=== PATIENT | male | born 1945 | race Caucasian/White ===

== ENCOUNTER 2016-07-01 06:24 | Inpatient (IN) | payer MEDICARE, OTHER ==
[~2016-07-01] VITALS: Ht 167.6 cm; Wt 74.8 kg
[2016-07-01 06:25] VITALS: BP 133/68; PULSE 68; RESP 18; TEMP 97.6; O2SAT 97
[2016-07-01] MEDS ORDERED: CARB25TA9 PO (06:30)
[2016-07-01] MEDS ORDERED: PROP20TA3 PO (06:30)
[2016-07-01] MEDS ORDERED: SODIUM CHLOR 0.9% 1000 ML INJ 1,000 ML IV SCH (07:09)
--- NOTE | 2016-07-01 07:14 | PD ---
HPI Chief Complaint: Musculoskeletal Complaint Time Seen by Provider: 06:53 Travel History International Travel<30 days: No Contact w/Intl Traveler<30days: No Traveled to known affect area: No History of Present Illness HPI This is a 71-year-old male with a history of Parkinson's disease who presents to the emergency department with 2-3 weeks of increasing gait instability reporting that his right lower extremity intermittently feels like " wood", numb, and tight, making it difficult for him to walk around the house intermittent. He does not use a walker or a cane at this point. He is followed by Dr. Treviño for his Parkinson's disease. He lives alone and is having trouble getting around the house, cooking for himself and taking care of himself. He is a poor historian and does have some language barrier. EMS reports that a neighbor was present when they arrived at the house and the neighbor felt the patient's gait was much more unstable than normal despite the patient's baseline Parkinson's disease. PFSH Past Medical History Cardiovascular Problems: Yes Diminished Hearing: No Medical other: Yes (PARKINSON'S ) Tetanus Vaccination: > 5 Years Influenza Vaccination: No Past Surgical History Surgical History: No Previous Surgery Social History Alcohol Use: No Tobacco Use: No Substance Use: No Allergies-Medications (Allergen,Severity, Reaction): Coded Allergies: No Known Allergies (Unverified , 07/01/16) Reported Meds & Prescriptions Reported Meds & Active Scripts Active Reported Carbidopa-Levodopa 25-100 Mg Tab 1 Tab PO Q8HR Propranolol (Propranolol HCl) 20 Mg Tab 20 Mg PO Q8HR Review of Systems Except as stated in HPI: all other systems reviewed are Neg Physical Exam Narrative GENERAL:Well appearing, no acute distress SKIN: Warm and dry. HEAD: Atraumatic. Normocephalic. EYES: Pupils equal and round. No injection or drainage. ENT: Moist mucous membranes NECK: Trachea midline. CARDIOVASCULAR: Regular rate and rhythm. No murmur appreciated. 2+ bilateral DP pulses. Normal capillary refill. RESPIRATORY: Clear to auscultation. Breath sounds equal bilaterally. GASTROINTESTINAL: Abdomen soft, non-tender, nondistended. MUSCULOSKELETAL: No obvious deformities. NEUROLOGICAL: Awake and alert. Resting tremor present with rigidity of the extremities. 4+ out of 5 strength in the right lower extremity, 5 out of 5 strength in the left lower extremity, 5 out of 5 strength in the bilateral upper extremities. 3+ patellar reflex on the right, 2+ patellar reflex on the left. No clonus. PSYCHIATRIC: Appropriate mood and affect; insight and judgment normal. Data Data Last Documented VS Vital Signs Date Time Temp Pulse Resp B/P Pulse Ox O2 Delivery O2 Flow Rate FiO2 07/01/16 06:25 97.6 68 18 133/68 97 Orders Electrocardiogram (07/01/16 06:30) Complete Blood Count With Diff (07/01/16 07:09) Comprehensive Metabolic Panel (07/01/16 07:09) Creatine Kinase (Cpk) (07/01/16 07:09) Urinalysis - C+S If Indicated (07/01/16 07:09) Ct Brain W/O Iv Contrast(Rout) (07/01/16 07:09) Blood Glucose (07/01/16 07:09) Ecg Monitoring (07/01/16 07:09) Iv Access Insert/Monitor (07/01/16 07:09) Oximetry (07/01/16 07:09) Sodium Chloride 0.9% Flush (Ns Flush) (07/01/16 07:15) Sodium Chlor 0.9% 1000 Ml Inj (Ns 1000 M (07/01/16 07:09) Labs Laboratory Tests Test 07/01/16 07/01/16 07:00 07:30 White Blood Count 6.4 TH/MM3 Red Blood Count 3.88 MIL/MM3 Hemoglobin 11.5 GM/DL Hematocrit 34.1 % Mean Corpuscular Volume 88.0 FL Mean Corpuscular Hemoglobin 29.7 PG Mean Corpuscular Hemoglobin 33.8 % Concent Red Cell Distribution Width 12.5 % Platelet Count 136 TH/MM3 Mean Platelet Volume 10.7 FL Neutrophils (%) (Auto) 67.0 % Lymphocytes (%) (Auto) 21.5 % Monocytes (%) (Auto) 10.4 % Eosinophils (%) (Auto) 0.7 % Basophils (%) (Auto) 0.4 % Neutrophils # (Auto) 4.3 TH/MM3 Lymphocytes # (Auto) 1.4 TH/MM3 Monocytes # (Auto) 0.7 TH/MM3 Eosinophils # (Auto) 0.0 TH/MM3 Basophils # (Auto) 0.0 TH/MM3 CBC Comment DIFF FINAL Differential Comment Sodium Level 147 MEQ/L Potassium Level 2.9 MEQ/L Chloride Level 116 MEQ/L Carbon Dioxide Level 22.4 MEQ/L Anion Gap 9 MEQ/L Blood Urea Nitrogen 18 MG/DL Creatinine 0.66 MG/DL Estimat Glomerular Filtration 119 ML/MIN Rate Random Glucose 145 MG/DL Calcium Level 6.4 MG/DL Protein Corrected Calcium 7.8 MG/DL Total Bilirubin 0.3 MG/DL Aspartate Amino Transf 13 U/L (AST/SGOT) Alanine Aminotransferase 17 U/L (ALT/SGPT) Alkaline Phosphatase 54 U/L Total Creatine Kinase 81 U/L Total Protein 4.4 GM/DL Albumin 2.3 GM/DL Urine Color YELLOW Urine Turbidity CLEAR Urine pH 5.5 Urine Specific [place] 1.027 Urine Protein TRACE mg/dL Urine Glucose (UA) 300 mg/dL Urine Ketones NEG mg/dL Urine Occult Blood NEG Urine Nitrite NEG Urine Bilirubin NEG Urine Urobilinogen LESS THAN 2.0 MG/DL Urine Leukocyte Esterase NEG Urine RBC 1 /hpf Urine WBC 1 /hpf Urine Mucus MOD /lpf Microscopic Urinalysis Comment CATH-CULT NOT IND MDM Medical Decision Making Medical Screen Exam Complete: Yes Emergency Medical Condition: Yes Interpretation(s) Afebrile, no tachycardia, normotensive Mild anemia Mild thrombocytopenia Hypokalemia Low albumin Head CT: Atrophy Differential Diagnosis Stroke, herniated disc, demyelinating disease, Parkinson's Narrative Course This is a 71-year-old male who presents to the emergency department with increasing discomfort in his right lower extremity described as some tightness but also weakness and numbness. He does seem to have some mild objective weakness in the right lower extremity although he is able to walk slowly with assistance. He lives alone. He was placed on a monitor and an IV was established. He is hypokalemic and also has a low albumin suggesting some possible malnutrition. I think it's reasonable to place the patient in observation, have neurology see him, and have physical therapy assess him to ensure a safe discharge. His symptoms may just be related to progression of his Parkinson's disease. Diagnosis Primary Impression: Weakness Admitting Information Admitting Physician Requests: Observation Adelia Lema MD Jul 01, 2016 07:14
[2016-07-01] MEDS ORDERED: SODIUM CHLORIDE 0.9% FLUSH 5 ML FLUSH IVF PRN (07:15)
[2016-07-01 07:35] LABS: AUTOMATED NEUTROPHIL # 4.3 TH/MM3 (1.8-7.7); BASOPHIL % 0.4 % (0.0-2.0); EOSINOPHIL % 0.7 % (0.0-4.0); HEMATOCRIT 34.1 % (39.0-51.0); HEMO FLAGS DIFF FINAL; LYMPH % 21.5 % (9.0-44.0); LYMPHOCYTE # 1.4 TH/MM3 (1.0-4.8); MEAN CORPUSCULAR HEMOGLOBIN 29.7 PG (27.0-34.0); MEAN CORPUSCULAR HGB CONC 33.8 % (32.0-36.0); MONO % 10.4 % (0.0-8.0); PLATELET COUNT 136 TH/MM3 (150-450); RED BLOOD COUNT 3.88 MIL/MM3 (4.50-5.90); RED CELL DISTRIBUTION WIDTH 12.5 % (11.6-17.2); WHITE BLOOD COUNT 6.4 TH/MM3 (4.0-11.0)
--- NOTE | 2016-07-01 07:41 | RADRPT ---
EXAM DATE/TIME: 07/01/2016 07:29 [facility] COMPARISON: No previous studies available for comparison. INDICATIONS : Unsteady gait, history of Parkinson's. RADIATION DOSE: 56.35 CTDIvol (mGy) MEDICAL HISTORY : Parkinson's. SURGICAL HISTORY : None. ENCOUNTER: Initial ACUITY: 1 day PAIN SCALE: 0/10 LOCATION: cranial TECHNIQUE: Multiple contiguous axial images were obtained of the head. Using automated exposure control and adj ustment of the mA and/or kV according to patient size, radiation dose was kept as low as reasonably a chievable to obtain optimal diagnostic quality images. FINDINGS: First mild atrophy. No hemorrhage, infarct, or mass. Osseous structures are intact. CONCLUSION: No acute disease. Humberto Doan MD on July 01, 2016 at 7:39 Board Certified Radiologist. This report was verified electronically.
[2016-07-01 07:49] LABS: BICARBONATE 22.4 MEQ/L (21.0-32.0); CALCIUM-PROTEIN CORRECTED 7.8 MG/DL (8.5-10.1); TOTAL BILIRUBIN ADULT 0.3 MG/DL (0.2-1.0)
[2016-07-01 07:53] LABS: POTASSIUM 2.9 MEQ/L (3.5-5.1)
[2016-07-01 07:57] LABS: BLOOD, URINE NEG (NEG); COMMENT (UR) CATH-CULT NOT IND; CULTURE IF INDICATED CATH CULTURE NOT IND; GLUCOSE,URINE 300 mg/dL (NEG); KETONE, URINE NEG (NEG); MUCUS URINE MOD /lpf (OCC); NITRITE,URINE NEG (NEG); PH, URINE 5.5 (5.0-8.5); URINE COLOR YELLOW (YELLW/STRAW)
[2016-07-01] MEDS ORDERED: POTASSIUM CL 40 MEQ/30 ML LIQ UDC PO ONE (08:15)
[2016-07-01 08:31] VITALS: O2SAT 96
--- NOTE | 2016-07-01 09:21 | HHI.HP ---
HPI Service Family Medicine Primary Care Physician No Primary Care Physician Admission Diagnosis weakness Diagnoses: International Travel<30 Days: No Contact w/Intl Traveler<30days: No Known Affected Area: No History of Present Illness 4 years PD. 2-3 weeks right leg both legs feel like piece of wood instead of legs right leg shaking. before, i sleep everything ok. h/o sacral infection alwyas low power in arms choke on his own tongue. face looks the same if i get up from the bed, then arms shake No LOC, sz, falls. can walk with little steps. no walker, no cane. Last visit with Neuro Dr. Treviño, 1 month ago. better at that time. neighbor called 911. Live alone. Review of Systems ROS Limitations: Language Barrier (pt speaks Japanese, [place] Citizen with accent and limited vocabulary) Constitutional: DENIES: Fever, Chills Endocrine: DENIES: Polyuria Eyes: COMPLAINS OF: Blurred vision Ears, nose, mouth, throat: DENIES: Hearing loss, Throat pain Respiratory: DENIES: Cough, Shortness of breath Cardiovascular: DENIES: Chest pain Gastrointestinal: COMPLAINS OF: Constipation (no BM qd), DENIES: Abdominal pain Genitourinary: DENIES: Dysuria Musculoskeletal: COMPLAINS OF: Back pain Integumentary: COMPLAINS OF: Nail changes (toes rubbing, causing infection) Neurologic: COMPLAINS OF: Abnormal gait, Paresthesias, DENIES: Headache, Seizures Psychiatric: DENIES: Anxiety, Depression Past Family Social History Past Medical History PD Past Surgical History No surg Reported Medications something to calm nerves Reported Meds & Active Scripts Active Reported Carbidopa-Levodopa 25-100 Mg Tab 1 Tab PO Q8HR Propranolol (Propranolol HCl) 20 Mg Tab 20 Mg PO Q8HR Allergies: Coded Allergies: No Known Allergies (Unverified , 07/01/16) Family History no PD in [facility] Social History moved here 40 years for an [place] girl 2 years ago. Son . used to walk and bicycle. No HECTOR. Physical Exam Vital Signs Vital Signs Date Time Temp Pulse Resp B/P Pulse Ox O2 Delivery O2 Flow Rate FiO2 07/01/16 08:31 96 Room Air 07/01/16 06:25 97.6 68 18 133/68 97 Physical Exam GENERAL: This is a well-nourished, well-developed patient, in no apparent distress. SKIN: No rashes, ecchymoses or lesions. Cool and dry. HEAD: Atraumatic. Normocephalic. No temporal or scalp tenderness. EYES: Pupils equal round and reactive. Extraocular motions intact. No scleral icterus. No injection or drainage. ENT: Nose without bleeding, purulent drainage or septal hematoma. Throat without erythema, tonsillar hypertrophy or exudate. Uvula midline. Airway patent. NECK: Trachea midline. No JVD or lymphadenopathy. Supple, nontender, no meningeal signs. CARDIOVASCULAR: Regular rate and rhythm without murmurs, gallops, or rubs. RESPIRATORY: Clear to auscultation. Breath sounds equal bilaterally. No wheezes , rales, or rhonchi. GASTROINTESTINAL: Abdomen soft, non-tender, nondistended. No hepato-splenomegaly , or palpable masses. No guarding. MUSCULOSKELETAL: Extremities without clubbing, cyanosis, or edema. No joint tenderness, effusion, or edema noted. No calf tenderness. Negative Homans sign bilaterally. NEUROLOGICAL: Awake and alert. Cranial nerves II through XII intact. Motor and sensory grossly within normal limits. Five out of 5 muscle strength in all muscle groups. Normal speech. Laboratory Laboratory Tests Test 07/01/16 07/01/16 07:00 07:30 White Blood Count 6.4 Red Blood Count 3.88 Hemoglobin 11.5 Hematocrit 34.1 Mean Corpuscular Volume 88.0 Mean Corpuscular Hemoglobin 29.7 Mean Corpuscular Hemoglobin 33.8 Concent Red Cell Distribution Width 12.5 Platelet Count 136 Mean Platelet Volume 10.7 Neutrophils (%) (Auto) 67.0 Lymphocytes (%) (Auto) 21.5 Monocytes (%) (Auto) 10.4 Eosinophils (%) (Auto) 0.7 Basophils (%) (Auto) 0.4 Neutrophils # (Auto) 4.3 Lymphocytes # (Auto) 1.4 Monocytes # (Auto) 0.7 Eosinophils # (Auto) 0.0 Basophils # (Auto) 0.0 CBC Comment DIFF FINAL Differential Comment Sodium Level 147 Potassium Level 2.9 Chloride Level 116 Carbon Dioxide Level 22.4 Anion Gap 9 Blood Urea Nitrogen 18 Creatinine 0.66 Estimat Glomerular Filtration 119 Rate Random Glucose 145 Calcium Level 6.4 Protein Corrected Calcium 7.8 Total Bilirubin 0.3 Aspartate Amino Transf 13 (AST/SGOT) Alanine Aminotransferase 17 (ALT/SGPT) Alkaline Phosphatase 54 Total Creatine Kinase 81 Total Protein 4.4 Albumin 2.3 Urine Color YELLOW Urine Turbidity CLEAR Urine pH 5.5 Urine Specific [place] 1.027 Urine Protein TRACE Urine Glucose (UA) 300 Urine Ketones NEG Urine Occult Blood NEG Urine Nitrite NEG Urine Bilirubin NEG Urine Urobilinogen LESS THAN 2.0 Urine Leukocyte Esterase NEG Urine RBC 1 Urine WBC 1 Urine Mucus MOD Microscopic Urinalysis Comment CATH-CULT NOT IND Result Diagram: 07/01/16 0700 07/01/16 0700 Physician Certification Order for Inpatient Services The services are ordered in accordance with Medicare regulations or non- Medicare payer requirements, as applicable. In the case of services not specified as inpatient-only, they are appropriately provided as inpatient services in accordance with the 2-midnight benchmark. days is the estimated time the patient will need to remain in the hospital, assuming treatment plan goals are met and no additional complications. Joby Brantley MD R1 Jul 01, 2016 09:21
[2016-07-01] MEDS ORDERED: hydrALAZINE HCL 10 MG TAB PO PRN (09:45)
[2016-07-01] MEDS ORDERED: ONDANSETRON HCL 4 MG/2 ML VIAL IV PRN (09:45)
[2016-07-01] MEDS ORDERED: ACETAMINOPHEN 325 MG TAB PO PRN (09:45)
[2016-07-01] MEDS ORDERED: POTASSIUM CHLORIDE 25 MEQ EFFERVESCENT TAB PO ONE (10:00)
[2016-07-01] MEDS ORDERED: CALCIUM GLUCONATE INJ 1 GM in SODIUM CHLORIDE 0.9% INJ 100 ML IV ONE (11:00)
[2016-07-01] MEDS: ENOXAPARIN SODIUM 40 MG/0.4 ML SYRINGE SQ SCH (11:03)
[2016-07-01 14:02] VITALS: BP 145/79
--- NOTE | 2016-07-01 15:36 | HHI.HP ---
History of Present Illness Primary Care Physician Sierra Helm DO Admission Diagnosis weakness and insomnis progressing over the past week now with ambulatory difficulties and hypocalcemia Diagnoses: (1) Weakness (2) parkinsons Review of Systems Constitutional: COMPLAINS OF: Fever Musculoskeletal: COMPLAINS OF: Stiffness Neurologic: COMPLAINS OF: Abnormal gait, Tremor, Poor Balance Psychiatric: COMPLAINS OF: Agitation Past Family Social History Allergies: Coded Allergies: No Known Allergies (Unverified , 07/01/16) Past Medical History parkinsons Past Surgical History appendectomy Reported Medications Current Medications Medications (Trade) Dose Ordered Sig/Chago Route PRN Reason Start Time Stop Time Status Last Admin Dose Admin IV Flush (NS Flush) 2 ml UNSCH PRN IVF FLUSH AFTER USING IV ACCESS 07/01/16 07:15 Enoxaparin Sodium (Lovenox Inj) 40 mg Q24H SQ 07/01/16 10:00 07/01/16 11:03 Hydralazine HCl (Apresoline) 10 mg Q6H PRN PO SBP>160, DBP>90 07/01/16 09:45 Senna/Docusate Sodium (Erendira-Colace) 2 tab HS PO 07/01/16 21:00 Ondansetron HCl (Zofran Inj) 4 mg Q6H PRN IV NAUSEA OR VOMITING 07/01/16 09:45 Acetaminophen (Tylenol) 650 mg Q4H PRN PO SEE LABEL COMMENTS 07/01/16 09:45 Active Ordered Medications Current Medications Medications (Trade) Dose Ordered Sig/Chago Route PRN Reason Start Time Stop Time Status Last Admin Dose Admin IV Flush (NS Flush) 2 ml UNSCH PRN IVF FLUSH AFTER USING IV ACCESS 07/01/16 07:15 Enoxaparin Sodium (Lovenox Inj) 40 mg Q24H SQ 07/01/16 10:00 07/01/16 11:03 Hydralazine HCl (Apresoline) 10 mg Q6H PRN PO SBP>160, DBP>90 07/01/16 09:45 Senna/Docusate Sodium (Erendira-Colace) 2 tab HS PO 07/01/16 21:00 Ondansetron HCl (Zofran Inj) 4 mg Q6H PRN IV NAUSEA OR VOMITING 07/01/16 09:45 Acetaminophen (Tylenol) 650 mg Q4H PRN PO SEE LABEL COMMENTS 07/01/16 09:45 Family History both parents are in old age Social History non smoker nondrinker non drugger Physical Exam Vital Signs Vital Signs Date Time Temp Pulse Resp B/P Pulse Ox O2 Delivery O2 Flow Rate FiO2 07/01/16 14:02 89 18 145/79 98 07/01/16 08:31 96 Room Air 07/01/16 06:25 97.6 68 18 133/68 97 Physical Exam GENERAL: This is a well-nourished, well-developed patient, in no apparent distress walks with walker with typical parkinsons gait an resting tremor. SKIN: No rashes, ecchymoses or lesions. Cool and dry. HEAD: Atraumatic. Normocephalic. No temporal or scalp tenderness. EYES: Pupils equal round and reactive. Extraocular motions intact. No scleral icterus. No injection or drainage. ENT: Nose without bleeding, purulent drainage or septal hematoma. Throat without erythema, tonsillar hypertrophy or exudate. Uvula midline. Airway patent. NECK: Trachea midline. No JVD or lymphadenopathy. Supple, nontender, no meningeal signs. CARDIOVASCULAR: Regular rate and rhythm without murmurs, gallops, or rubs. RESPIRATORY: Clear to auscultation. Breath sounds equal bilaterally. No wheezes , rales, or rhonchi. GASTROINTESTINAL: Abdomen soft, non-tender, nondistended. No hepato-splenomegaly , or palpable masses. No guarding. MUSCULOSKELETAL: Extremities without clubbing, cyanosis, or edema. No joint tenderness, effusion, or edema noted. No calf tenderness. Negative Homans sign bilaterally. NEUROLOGICAL: Awake and alert. Cranial nerves II through XII intact. Motor and sensory grossly within normal limits. Five out of 5 muscle strength in all muscle groups. Normal speech. resting tremor present as is cogwheeling Laboratory Laboratory Tests Test 07/01/16 07/01/16 07:00 07:30 White Blood Count 6.4 Red Blood Count 3.88 Hemoglobin 11.5 Hematocrit 34.1 Mean Corpuscular Volume 88.0 Mean Corpuscular Hemoglobin 29.7 Mean Corpuscular Hemoglobin 33.8 Concent Red Cell Distribution Width 12.5 Platelet Count 136 Mean Platelet Volume 10.7 Neutrophils (%) (Auto) 67.0 Lymphocytes (%) (Auto) 21.5 Monocytes (%) (Auto) 10.4 Eosinophils (%) (Auto) 0.7 Basophils (%) (Auto) 0.4 Neutrophils # (Auto) 4.3 Lymphocytes # (Auto) 1.4 Monocytes # (Auto) 0.7 Eosinophils # (Auto) 0.0 Basophils # (Auto) 0.0 CBC Comment DIFF FINAL Differential Comment Sodium Level 147 Potassium Level 2.9 Chloride Level 116 Carbon Dioxide Level 22.4 Anion Gap 9 Blood Urea Nitrogen 18 Creatinine 0.66 Estimat Glomerular Filtration 119 Rate Random Glucose 145 Calcium Level 6.4 Protein Corrected Calcium 7.8 Total Bilirubin 0.3 Aspartate Amino Transf 13 (AST/SGOT) Alanine Aminotransferase 17 (ALT/SGPT) Alkaline Phosphatase 54 Total Creatine Kinase 81 Total Protein 4.4 Albumin 2.3 Urine Color YELLOW Urine Turbidity CLEAR Urine pH 5.5 Urine Specific [place] 1.027 Urine Protein TRACE Urine Glucose (UA) 300 Urine Ketones NEG Urine Occult Blood NEG Urine Nitrite NEG Urine Bilirubin NEG Urine Urobilinogen LESS THAN 2.0 Urine Leukocyte Esterase NEG Urine RBC 1 Urine WBC 1 Urine Mucus MOD Microscopic Urinalysis Comment CATH-CULT NOT IND Result Diagram: 07/01/16 0700 07/01/16 0700 Assessment and Plan Assessment and Plan acute exacerbation parkinsons , insomnia , anxiety unsteady gait Discharge Planning would benefit from rehab while his parkinsons meds are adjusted Fantasma Helm DO Jul 01, 2016 15:36
[2016-07-01 15:57] VITALS: BP 169/76; PULSE 77; RESP 18; TEMP 97; O2SAT 97
[2016-07-01 16:14] LABS: BICARBONATE 27.8 MEQ/L (21.0-32.0); POTASSIUM 4.3 MEQ/L (3.5-5.1)
[2016-07-01 16:55] LABS: AUTOMATED NEUTROPHIL # 5.6 TH/MM3 (1.8-7.7); BASOPHIL % 0.4 % (0.0-2.0); EOSINOPHIL % 0.4 % (0.0-4.0); HEMATOCRIT 42.3 % (39.0-51.0); HEMO FLAGS DIFF FINAL; LYMPH % 17.9 % (9.0-44.0); LYMPHOCYTE # 1.4 TH/MM3 (1.0-4.8); MEAN CELL VOLUME 87.3 FL (80.0-100.0); MEAN CORPUSCULAR HEMOGLOBIN 30.2 PG (27.0-34.0); MEAN CORPUSCULAR HGB CONC 34.6 % (32.0-36.0); MONO % 8.8 % (0.0-8.0); NEUT % 72.5 % (16.0-70.0); PLATELET COUNT 211 TH/MM3 (150-450); RED BLOOD COUNT 4.85 MIL/MM3 (4.50-5.90); RED CELL DISTRIBUTION WIDTH 12.9 % (11.6-17.2); WHITE BLOOD COUNT 7.7 TH/MM3 (4.0-11.0)
[2016-07-01 17:25] LABS: WESTERGREN SEDIMENTATION RATE 5 mm/hr (0-20)
--- NOTE | 2016-07-01 17:44 | EKG ---
Date Performed: 07/01/2016 Time Performed: 06:30:02 PTAGE: 71 years EKG: Sinus rhythm WITH OCCASIONAL SUPRAVENTRICULAR PREMATURE COMPLEXES BORDERLINE ECG NO PREVIOUS TRACING DOCTOR: Selena Acosta Interpretating Date/Time 07/01/2016 17:43:37
[2016-07-01] MEDS ORDERED: CARBIDOPA/LEVODOPA 25 MG/100 MG TAB PO ONE (19:15)
[2016-07-01 20:00] VITALS: BP 148/67; PULSE 72; RESP 22; TEMP 96.9; O2SAT 98
--- NOTE | 2016-07-01 20:00 | MB ---
cc: KILEY COX DATE OF CONSULTATION: 07/01/2016 REASON FOR CONSULTATION: HISTORY OF PRESENT ILLNESS: The patient is a 71-year-old right-handed man with a history of Parkinson's disease, followed by Dr. Treviño, who came to the emergency department. It feels like his right leg is wood. On talking him to him further it appears to be more like cramps in his legs. He lives alone. He has had trouble getting around, cannot sleep well. He is originally from [place]. ALLERGIES: None known. MEDICATIONS: He is on Sinemet, one pill every 8 hours, 25/100. Inderal 20 milligrams q8 hours. REVIEW OF SYSTEMS: He denied any hypertension, diabetes, hypercholesterolemia, IN CABG, cardiac arrhythmia, renal, hepatic, pulmonary disease, thyroid disease, lupus, ulcer, cancer, seizure, stroke. SOCIAL HISTORY He is not a smoker or drinker. He lives alone. FAMILY HISTORY: Negative for cancer, seizure or stroke. PHYSICAL EXAMINATION: Afebrile, 77, 18, 169/76. There were no carotid bruits. Heart: Heart was regular rhythm. I did not detect a murmur. HEENT: Pupils were equal. Visual [place] full. Extraocular movements intact without nystagmus. Fact symmetrical with normal sensation. Tongue was midline. There is no drift. He had normal strength in upper and lower extremities bilaterally. Tone is increased with mild cogwheel rigidity, more on the right side than the left, although his tone was near normal, bilateral lower extremities. Toes was downgoing bilaterally. DTRs are 2+ symmetric throughout. Pinprick and vibratory sense are intact including the right and left foot. He has absent pulses in both of his feet. He has a little bit of swelling on the distal right lower extremity around the ankle compared to the left. He is not ataxic on [id number] or [id number]. Gait is actually steady. He takes some smaller steps. No major shuffling right now. LABORATORY DATA: Sedimentation rate is normal. UA is negative. PSA is elevated 5.7. Basic metabolic profile was normal. Initially his potassium was 2.9 but it has come up. Calcium was low at 6.4, now 8.6. LFTs are normal. Abdominal 2.3. LDL cholesterol has been high in the past in 2011. He had a CT scan of his brain which showed some mild atrophy. Review of the films. IMPRESSION: Parkinson's disease, do not see much going on here. Will just get a venous ultrasound done of the right lower extremity. He has poor pulses in both of his feet. He could have some peripheral vascular disease, that could be worked up outpatient. I will increase his Sinemet to two pills one at 4, and one at bed time. However, what could be done in the office, could consider starting him on Azilect or dopamine agonist instead of doubling on his Sinemet long-term but just short-term to see if that will help will do it here, then he might be able to back off on the Sinemet back to one pill again. MD MARIO De Leon/MACKENZIE /5:54 PM /7:44 PM
[2016-07-01 21:00] VITALS: PULSE 91
[2016-07-01] MEDS: DOCUSATE SODIUM 50 MG/SENNA 8.6 MG TAB PO SCH (21:52)
[2016-07-01] MEDS: CARBIDOPA/LEVODOPA 25 MG/100 MG TAB PO SCH (21:57)
[2016-07-02] VITALS (10 sets, daily range): BP systolic 78–135; BP diastolic 50–74; PULSE 65–118; RESP 16–18; TEMP 95.6–98.5; O2SAT 96–99
[2016-07-02] MEDS: CARBIDOPA/LEVODOPA 25 MG/100 MG TAB PO SCH ×3 (05:56→21:58)
[2016-07-02 07:31] LABS: AUTOMATED NEUTROPHIL # 3.8 TH/MM3 (1.8-7.7); BASOPHIL % 0.3 % (0.0-2.0); EOSINOPHIL % 0.6 % (0.0-4.0); HEMATOCRIT 40.9 % (39.0-51.0); HEMO FLAGS DIFF FINAL; LYMPH % 25.1 % (9.0-44.0); LYMPHOCYTE # 1.5 TH/MM3 (1.0-4.8); MEAN CELL VOLUME 87.5 FL (80.0-100.0); MEAN CORPUSCULAR HEMOGLOBIN 29.6 PG (27.0-34.0); MEAN CORPUSCULAR HGB CONC 33.8 % (32.0-36.0); MONO % 11.9 % (0.0-8.0); NEUT % 62.1 % (16.0-70.0); PLATELET COUNT 169 TH/MM3 (150-450); RED BLOOD COUNT 4.67 MIL/MM3 (4.50-5.90); RED CELL DISTRIBUTION WIDTH 12.8 % (11.6-17.2); WHITE BLOOD COUNT 6.1 TH/MM3 (4.0-11.0)
[2016-07-02 07:50] LABS: ALT (GPT) 11 U/L (12-78); ANION GAP 6 MEQ/L (5-15); AST (GOT) 14 U/L (15-37); BICARBONATE 30.6 MEQ/L (21.0-32.0); BLOOD UREA NITROGEN 14 MG/DL (7-18); CHLORIDE 104 MEQ/L (98-107); GLOMERULAR FILTRATION RATE 86 ML/MIN (>89); POTASSIUM 4.2 MEQ/L (3.5-5.1); SODIUM (NA) 141 MEQ/L (136-145)
[2016-07-02 07:52] LABS: ALKALINE PHOSPHATASE 63 U/L (45-117); TOTAL BILIRUBIN ADULT 0.8 MG/DL (0.2-1.0)
--- NOTE | 2016-07-02 08:05 | HHI.PR ---
Objective Vital Signs Date Time Temp Pulse Resp B/P Pulse Ox O2 Delivery O2 Flow Rate FiO2 07/02/16 04:00 95.6 75 18 126/60 99 07/02/16 00:00 96.8 65 16 101/59 98 07/01/16 21:00 91 07/01/16 20:00 96.9 72 22 148/67 98 07/01/16 15:57 97.0 77 18 169/76 97 07/01/16 14:02 89 18 145/79 98 07/01/16 08:31 96 Room Air I/O 07/01/16 07/01/16 07/01/16 07/02/16 07/02/16 07/02/16 07:00 15:00 23:00 07:00 15:00 23:00 Intake Total 120 ml 120 ml Balance 120 ml 120 ml Intake Oral 120 ml 120 ml # Voids 2 1 # Bowel Movements 0 0 Result Diagram: 07/02/16 0631 07/02/16 0631 Objective Remarks awake alert stride a little better on two pills tid still co did not sleep well tone a bit better and gait steady Assessment and Plan Assessment and Plan imp he can dc and fu dr fatima outpt this week if venous us neg dvt Galen Tompkins MD Jul 02, 2016 08:05
[2016-07-02] MEDS: ENOXAPARIN SODIUM 40 MG/0.4 ML SYRINGE SQ SCH (09:42)
--- NOTE | 2016-07-02 12:11 | RADRPT ---
EXAM DATE/TIME: 07/02/2016 11:00 [facility] COMPARISON: No previous studies available for comparison. INDICATIONS : Bilateral leg pain. MEDICAL HISTORY : Parkinson's disease. unable to obtain full medical history. SURGICAL HISTORY : None. ENCOUNTER: Initial ACUITY: 1 day PAIN SCORE: 1/10 LOCATION: Bilateral legs. TECHNIQUE: Venous ultrasound of the left and right leg was performed from the inguinal ligament to the proximal calf. Real-time, color Doppler and spectral tracing, compression and augmentation techniques were us ed. FINDINGS: RIGHT LEG: There is normal compressibility of the deep venous system from the inguinal region to the proximal ca lf. No echogenic clot is seen in the lumen of the common femoral, femoral, popliteal, and posterior tibial veins. There is a normal response of the venous system to proximal and distal augmentation an d respiration. LEFT LEG: There is normal compressibility of the deep venous system from the inguinal region to the proximal ca lf. No echogenic clot is seen in the lumen of the common femoral, femoral, popliteal, and posterior tibial veins. There is a normal response of the venous system to proximal and distal augmentation an d respiration. CONCLUSION: No evidence of DVT. Abdirahman Lopez MD on July 02, 2016 at 12:10 Board Certified Radiologist. This report was verified electronically.
--- NOTE | 2016-07-02 12:54 | HHI.PR ---
Subjective Remarks Patient seen at bedside. OOB in chair reports that he has not slept very well and needs to go home soon. Objective Vital Signs Date Time Temp Pulse Resp B/P Pulse Ox O2 Delivery O2 Flow Rate FiO2 07/02/16 12:44 97.0 91 17 135/60 97 07/02/16 08:00 97.5 69 18 110/55 99 07/02/16 04:00 95.6 75 18 126/60 99 07/02/16 00:00 96.8 65 16 101/59 98 07/01/16 21:00 91 07/01/16 20:00 96.9 72 22 148/67 98 07/01/16 15:57 97.0 77 18 169/76 97 07/01/16 14:02 89 18 145/79 98 I/O 07/01/16 07/01/16 07/01/16 07/02/16 07/02/16 07/02/16 07:00 15:00 23:00 07:00 15:00 23:00 Intake Total 120 ml 120 ml Balance 120 ml 120 ml Intake Oral 120 ml 120 ml # Voids 2 1 # Bowel Movements 0 0 Result Diagram: 07/02/16 0631 07/02/16 0631 Imaging Last [address] 07/01/16 0709 Signed Impressions: Service Date/Time: Friday, July 01, 2016 07:29 - CONCLUSION: No acute disease. Humberto Doan MD Objective Remarks GENERAL: This is a well-nourished, well-developed patient, in no apparent distress walks with walker with typical parkinsons gait an resting tremor. SKIN: No rashes, ecchymoses or lesions. Cool and dry. HEAD: Atraumatic. Normocephalic. EYES: Pupils equal round and reactive. CARDIOVASCULAR: Regular rate and rhythm without murmurs, gallops, or rubs. RESPIRATORY: Clear to auscultation. Breath sounds equal bilaterally. No wheezes , rales, or rhonchi. GASTROINTESTINAL: Abdomen soft, non-tender, nondistended. MUSCULOSKELETAL: Weakness noted. No calf tenderness. Negative Homans sign bilaterally. NEUROLOGICAL: Awake and alert. . Normal speech. Resting tremor present. Medications and IVs Current Medications Medications (Trade) Dose Ordered Sig/Chago Route Start Time Stop Time Status Last Admin (NS Flush) 2 ml UNSCH PRN IVF 07/01/16 07:15 (Lovenox Inj) 40 mg Q24H SQ 07/01/16 10:00 07/02/16 09:42 (Apresoline) 10 mg Q6H PRN PO 07/01/16 09:45 (Erendira-Colace) 2 tab HS PO 07/01/16 21:00 07/01/16 21:52 (Zofran Inj) 4 mg Q6H PRN IV 07/01/16 09:45 (Tylenol) 650 mg Q4H PRN PO 07/01/16 09:45 (Sinemet 25-100 Mg) 2 tab BID@06,16 PO 07/02/16 06:00 07/02/16 05:56 (Sinemet 25-100 Mg) 1 tab HS PO 07/01/16 21:00 07/01/16 21:57 Assessment and Plan Problem List: (1) parkinsons Status: Acute Plan: Followed per Neurology. On Sinemet. Medication alteration per neuro. (2) Weakness Status: Acute Plan: Being followed per PT. OOB in Chair Discussed Condition With Assessment and plan discussed with Dr Helm. Discharge Planning Plan to discharge to SNF. Discussed with patient and he has not agreed to a SNF Dunia Chawla Jul 02, 2016 12:54
[2016-07-02] MEDS: DOCUSATE SODIUM 50 MG/SENNA 8.6 MG TAB PO SCH (21:59)
[2016-07-02] MEDS: SODIUM CHLOR 0.9% 1000 ML INJ 1,000 ML IV SCH (22:15)
[2016-07-03] VITALS (8 sets, daily range): BP systolic 96–138; BP diastolic 51–75; PULSE 69–98; RESP 15–20; TEMP 95.6–98.5; O2SAT 98–100
[2016-07-03] MEDS: CARBIDOPA/LEVODOPA 25 MG/100 MG TAB PO SCH ×3 (06:19→21:38)
--- NOTE | 2016-07-03 08:29 | HHI.PR ---
Objective Vital Signs Date Time Temp Pulse Resp B/P Pulse Ox O2 Delivery O2 Flow Rate FiO2 07/03/16 04:00 97.2 76 16 123/58 99 07/03/16 00:00 97.9 75 17 96/52 99 07/02/16 21:14 118 07/02/16 20:00 97.6 86 17 94/53 96 07/02/16 19:30 98.0 90 18 85/51 97 07/02/16 19:18 98.5 87 18 78/50 97 07/02/16 16:20 96.3 100 18 133/74 97 07/02/16 12:44 97.0 91 17 135/60 97 I/O 07/02/16 07/02/16 07/02/16 07/03/16 07/03/16 07/03/16 07:00 15:00 23:00 07:00 15:00 23:00 Intake Total 120 ml 480 ml 120 ml 1240 ml Balance 120 ml 480 ml 120 ml 1240 ml Intake Oral 120 ml 480 ml 120 ml 240 ml IV Total 1000 ml # Voids 1 2 2 3 # Bowel Movements 0 0 0 Result Diagram: 07/02/16 0631 07/02/16 0631 Objective Remarks awake alert stride better on two pills tid still did sleep better in chair tone a bit better and gait near nl ok dc by me us neg dvt fu dr fatima Assessment and Plan Assessment and Plan imp he can dc and fu dr fatima outpt this week if venous us neg dvt Galen Tompkins MD Jul 03, 2016 08:29
[2016-07-03 09:58] LABS: HEMATOCRIT 37.9 % (39.0-51.0); MEAN CELL VOLUME 86.6 FL (80.0-100.0); MEAN CORPUSCULAR HGB CONC 34.6 % (32.0-36.0); PLATELET COUNT 161 TH/MM3 (150-450); RED BLOOD COUNT 4.37 MIL/MM3 (4.50-5.90); RED CELL DISTRIBUTION WIDTH 12.7 % (11.6-17.2); REVIEW FLAG FINAL; WHITE BLOOD COUNT 5.2 TH/MM3 (4.0-11.0)
[2016-07-03] MEDS: ENOXAPARIN SODIUM 40 MG/0.4 ML SYRINGE SQ SCH (10:00)
[2016-07-03 10:21] LABS: BICARBONATE 28.2 MEQ/L (21.0-32.0); POTASSIUM 3.7 MEQ/L (3.5-5.1)
--- NOTE | 2016-07-03 10:51 | HHI.PR ---
Subjective Remarks Patient seen at bedside. OOB in chair reports that he can not sleep in bed and needs to go home soon. Objective Vital Signs Date Time Temp Pulse Resp B/P Pulse Ox O2 Delivery O2 Flow Rate FiO2 07/03/16 04:00 97.2 76 16 123/58 99 07/03/16 00:00 97.9 75 17 96/52 99 07/02/16 21:14 118 07/02/16 20:00 97.6 86 17 94/53 96 07/02/16 19:30 98.0 90 18 85/51 97 07/02/16 19:18 98.5 87 18 78/50 97 07/02/16 16:20 96.3 100 18 133/74 97 07/02/16 12:44 97.0 91 17 135/60 97 I/O 07/02/16 07/02/16 07/02/16 07/03/16 07/03/16 07/03/16 06:59 14:59 22:59 06:59 14:59 22:59 Intake Total 120 ml 480 ml 120 ml 1240 ml Balance 120 ml 480 ml 120 ml 1240 ml Intake Oral 120 ml 480 ml 120 ml 240 ml IV Total 1000 ml # Voids 1 2 2 3 # Bowel Movements 0 0 0 Result Diagram: 07/03/16 0840 07/03/16 0840 Objective Remarks GENERAL: This is a well-nourished, well-developed patient, in no apparent distress walks with walker with typical parkinsons gait an resting tremor. SKIN: No rashes, ecchymoses or lesions. Cool and dry. HEAD: Atraumatic. Normocephalic. EYES: Pupils equal round and reactive. CARDIOVASCULAR: Regular rate and rhythm without murmurs, gallops, or rubs. RESPIRATORY: Clear to auscultation. Breath sounds equal bilaterally. No wheezes , rales, or rhonchi. GASTROINTESTINAL: Abdomen soft, non-tender, nondistended. MUSCULOSKELETAL: Weakness noted. No calf tenderness. Negative Homans sign bilaterally. NEUROLOGICAL: Awake and alert. . Normal speech. Resting tremor present. Medications and IVs Current Medications Medications (Trade) Dose Ordered Sig/Chago Route Start Time Stop Time Status Last Admin (NS Flush) 2 ml UNSCH PRN IVF 07/01/16 07:15 (Lovenox Inj) 40 mg Q24H SQ 07/01/16 10:00 07/02/16 09:42 (Apresoline) 10 mg Q6H PRN PO 07/01/16 09:45 (Erendira-Colace) 2 tab HS PO 07/01/16 21:00 07/02/16 21:59 (Zofran Inj) 4 mg Q6H PRN IV 07/01/16 09:45 (Tylenol) 650 mg Q4H PRN PO 07/01/16 09:45 (Sinemet 25-100 Mg) 2 tab BID@06,16 PO 07/02/16 06:00 07/03/16 06:19 Carbidopa/ Levodopa 1 tab 1 tab HS PO 07/01/16 21:00 07/02/16 21:58 (NS 1000 ml Inj) 1,000 ml @ 100 mls/hr Q10H IV 07/02/16 22:15 07/02/16 22:15 Assessment and Plan Problem List: (1) parkinsons Status: Acute Plan: Followed per Neurology. On Sinemet. Medication alteration per neuro. OK for discharge per neurology and to follow up with Dr. Treviño (2) Weakness Status: Acute Plan: Being followed per PT. OOB in Chair. Walked with walker gait steady. (3) Hypotension Status: Acute Plan: SBP in 90 and 80 last night. IVF given with last B/P 123/58 Assessment and Plan Patient will be traveling to [place] on 15 of this month. Discussed possible delaying trip until patients strength increases but patient is not interested in delaying trip. He lives alone and could benefit from more rehab but patient is not interested at this time Discussed Condition With Assessment and plan discussed with Dr. Helm Discharge Planning Plan to discharge home with [facility] Dunia Chawla Jul 03, 2016 10:51
[2016-07-03] MEDS: SODIUM CHLOR 0.9% 1000 ML INJ 1,000 ML IV SCH ×3 (15:00→23:35)
[2016-07-03] MEDS: DOCUSATE SODIUM 50 MG/SENNA 8.6 MG TAB PO SCH (21:38)
[2016-07-04] VITALS: BP 119/63; PULSE 82; RESP 20; TEMP 97.6; O2SAT 98
[2016-07-04 04:00] VITALS: BP 138/71; PULSE 74; RESP 20; TEMP 96; O2SAT 95
[2016-07-04] MEDS: CARBIDOPA/LEVODOPA 25 MG/100 MG TAB PO SCH (05:41)
[2016-07-04 08:00] VITALS: BP 112/60; PULSE 70; RESP 17; TEMP 97.3; O2SAT 100
[2016-07-04 08:07] LABS: HEMATOCRIT 37.1 % (39.0-51.0); MEAN CELL VOLUME 88.4 FL (80.0-100.0); MEAN CORPUSCULAR HGB CONC 33.9 % (32.0-36.0); PLATELET COUNT 164 TH/MM3 (150-450); RED BLOOD COUNT 4.19 MIL/MM3 (4.50-5.90); REVIEW FLAG FINAL; WHITE BLOOD COUNT 5.8 TH/MM3 (4.0-11.0)
[2016-07-04 08:38] LABS: BICARBONATE 31.8 MEQ/L (21.0-32.0); POTASSIUM 3.8 MEQ/L (3.5-5.1)
[2016-07-04] MEDS: ENOXAPARIN SODIUM 40 MG/0.4 ML SYRINGE SQ SCH (10:11)
[2016-07-04] MEDS ORDERED: CARB25TA9 PO ×2 (10:37)
--- NOTE | 2016-07-04 10:42 | HHI.DS ---
Discharge Summary Admission Date Jul 01, 2016 at 09:39 Admitting Diagnosis weakness CBC/BMP: 07/04/16 0732 07/04/16 0732 Significant Findings Laboratory Tests Test 07/01/16 07/01/16 07/02/16 07/03/16 15:00 15:59 06:31 08:40 Random Glucose 116 MG/DL (74-106) Neutrophils (%) (Auto) 72.5 % (16.0-70.0) Monocytes (%) (Auto) 8.8 % (0.0-8.0) 11.9 % (0.0-8.0) Prostate Specific Antigen 5.73 NG/ML Screen (0.00-4.00) Estimat Glomerular Filtration 86 ML/MIN (>89) Rate Aspartate Amino Transf 14 U/L (15-37) (AST/SGOT) Alanine Aminotransferase 11 U/L (12-78) (ALT/SGPT) Red Blood Count 4.37 MIL/MM3 (4.50-5.90) Hematocrit 37.9 % (39.0-51.0) Calcium Level 8.3 MG/DL (8.5-10.1) Test 07/04/16 07:32 Red Blood Count 4.19 MIL/MM3 (4.50-5.90) Hemoglobin 12.6 GM/DL (13.0-17.0) Hematocrit 37.1 % (39.0-51.0) Estimat Glomerular Filtration 86 ML/MIN (>89) Rate Random Glucose 107 MG/DL (74-106) Imaging Last 72 hours Impressions Lower Extremity Ultrasound 07/02/16 0000 Signed Impressions: Service Date/Time: Saturday, July 02, 2016 11:00 - CONCLUSION: No evidence of DVT. Abdirahman Lopez MD PE at Discharge GENERAL: This is a well-nourished, well-developed patient, in no apparent distress walks with walker with typical parkinsons gait an resting tremor. SKIN: No rashes, ecchymoses or lesions. Cool and dry. HEAD: Atraumatic. Normocephalic. EYES: Pupils equal round and reactive. CARDIOVASCULAR: Regular rate and rhythm without murmurs, gallops, or rubs. RESPIRATORY: Clear to auscultation. Breath sounds equal bilaterally. No wheezes , rales, or rhonchi. GASTROINTESTINAL: Abdomen soft, non-tender, nondistended. MUSCULOSKELETAL: Weakness noted. No calf tenderness. Negative Homans sign bilaterally. NEUROLOGICAL: Awake and alert. . Normal speech. Resting tremor present. Hospital Course Patient is a very pleasant 71 year old male who was admitted to the hospital for acute exacerbation of parkinsons. Patient was seen by neurolgy and medication was altered. His hospital course was also slightly complicated with a low blood pressure. He did receive some IV fluids and was encouraged to increase fluids. His blood pressure medication is on hold until he is seen by Dr. Helm on the . He is discharged home with [facility] and PT. He will be traveling to [place] on the . Pt Condition on Discharge: Fair Discharge Disposition: Disch w/ Home Health Serv Discharge Instructions DIET: Follow Instructions for: Heart Healthy Diet Activities you can perform: Regular-No Restrictions New Medications: Carbidopa-Levodopa (Carbidopa-Levodopa) 25-100 Mg Tab 2 TAB PO BID@06,16 Seizure Control #30 TAB Carbidopa-Levodopa (Carbidopa-Levodopa) 25-100 Mg Tab 1 TAB PO HS Seizure Control #30 TAB Discontinued Medications: Carbidopa-Levodopa (Carbidopa-Levodopa) 25-100 Mg Tab 1 TAB PO Q8HR Parkinson Disease Mgmt #90 Ref 0 TAB Propranolol (Propranolol) 20 Mg Tab 20 MG PO Q8HR #90 Ref 0 TAB Additional Information Appt with Dr Helm at the [facility] on the at 12: 30 Please follow up with neurology in 2 weeks. Dunia Chawla Jul 04, 2016 10:42
--- NOTE | 2016-07-04 10:43 | HHI.FF ---
Face to Face Verification Diagnosis: (1) parkinsons (2) Weakness Physical Therapy Order: Evaluate and Treat, Improve ambulation, Strength and gait training Home Health Nursing Order: Signs/symptoms of disease process IV medication administration I have seen patient Chinatn Saucedo on 07/04/16. My clinical findings support the need for the requested home health care services because: Ltd mobility - disease progression I certify that my clinical findings support that this patient is homebound because: Unsteady gait/balance Dunia Chawla Jul 04, 2016 10:43
[2016-07-04 12:00] VITALS: BP 140/65; PULSE 78; RESP 19; TEMP 96.1; O2SAT 100
== END 2016-07-04 15:53 | disposition home health service (06) | DRG 57 ==
LOC: NEPC 06:24 → NEDA 08:16 → OBSVTOIN 09:39 → N05A 14:19
PROVIDERS: ADMIT Family Medicine; ATTEND Family Medicine
DX: G20 Parkinson's disease (principal); I95.9 Hypotension, unspecified; E83.51 Hypocalcemia; E87.6 Hypokalemia; G47.00 Insomnia, unspecified; F41.9 Anxiety disorder, unspecified; R26.81 Unsteadiness on feet; Z60.2 Problems related to living alone; R97.20 Elevated prostate specific antigen [PSA]
CPT/HCPCS: 70450; 80048; 80053; 81001; 82550; 85025; 85027; 85652; 93005; 93970; G0103; J0610; J1650; J7030